=== PATIENT | female | born 1995 | race Caucasian/White ===

== ENCOUNTER 2020-10-02 15:02 | Outpatient (CLI) | payer BC, OTHER ==
[2020-10-02 15:50] VITALS: BP 137/82; RESP 18; TEMP 98.2
[2020-10-02 16:38] VITALS: PULSE 95
--- NOTE | 2020-10-05 14:14 | P.MSEPDOC ---
Presenting Problems - Arrival Data Date of Arrival on Unit: 10/02/20 Time of Arrival on Unit: 15:02 Mode of Transport: Ambulatory - Complaint OB-Reason for Admission/Chief Complaint: Other Comment: pt sent to ob triage for continued efm/toco tracing, pt states she was having. contractions at the office during a scheduled nst and reported that the "baby's heart. rate was doing different things", pt also reported her heart rate and blood pressure. were elevated while on the monitor, denies lof/vb, reports + fm, denies complications. with , abd soft and non tender Medical History - Information : 2 Para: 1 Term: 1 : 0 Abortions: Spontaneous or Elective: 0 Number of Living Children: 1 - Gestational Age Gestational Age by SIDDHARTH (wks/days): 37 Weeks and 0 Days Review of Systems - Review of Systems Constitutional: No problems Breast: No problems ENT: No problems Cardiovascular: No problems Respiratory: No problems Gastrointestinal: No problems Genitourinary: No problems Musculoskeletal: No problems Neurological: No problems Skin: No problems Vital Signs - Temperature Temperature: 98.2 F Temperature Source: Oral - Pulse Right Brachial Pulse Rate: 95 Pulse Assessment Method: Automatic Cuff - Respirations Respiratory Rate: 18 Oxygen Delivery Method: Room Air O2 Sat by Pulse Oximetry: 98 - Blood Pressure Right Arm Blood Pressure: 137/82 Blood Pressure Mean: 100 Blood Pressure Source: Automatic Cuff - Comment Vital Signs Comment: rechecked bp with result of 128/83 pulse of 97 Medical Screen Scoring (Pre) - Cervical Exam Dilation: 0 cm = 0 Membranes: Intact - Uterine Contractions Frequency: > 5 minutes apart = 1 Duration: > 40 seconds = 2 Intensity: N/A - Maternal Vital Signs Maternal Temperature: N/A Maternal Blood Pressure: N/A Signs of Preeclampsia: N/A Maternal Respirations: N/A - Maternal Trauma Maternal Trauma: N/A - Assessment - Baby A Baseline FHR: 145 Heart Rate - NICHD Category: Category I (Normal) = 0 NST: Reactive Position: N/A Station: N/A - Total Score - Baby A Total Score - Baby A: 3 - Total Score - Baby B Total Score - Baby B: 3 - Total Score - Baby C Total Score - Baby C: 3 - Level of Risk - Baby A Level of Risk - Baby A: Low (0-5) - Level of Risk - Baby B Level of Risk - Baby B: Low (0-5) - Level of Risk - Baby C Level of Risk - Baby C: Low (0-5) Physician Notification (Pre) - Physician Notified Physician Notified Date: 10/02/20 Physician Notified Time: 15:30 New Order Received: Yes (check cervix, cont to observe in triage) Medical Screen Scoring (Post) - Cervical Exam Dilation: 0 cm = 0 Membranes: Intact - Uterine Contractions Frequency: > 5 minutes apart = 1 Duration: > 40 seconds = 2 Intensity: N/A - Maternal Vital Signs Maternal Temperature: N/A Maternal Blood Pressure: N/A Signs of Preeclampsia: N/A Maternal Respirations: N/A - Pain Assessment Pain Scale Used: Numeric (1 - 10) Pain Intensity: 0 Pain Management Goal: 3 - Maternal Trauma Maternal Trauma: N/A - Assessment - Baby A Heart Rate: 145 Heart Rate - NICHD Category: Category I (Normal) = 0 NST: Reactive Position: N/A - Total Score Total Score - Baby A: 3 Total Score - Baby B: 3 Total Score - Baby C: 3 - Post Treatment Level of Risk Post Treatment Level of Risk - Baby A: Low (0-5) Post Treatment Level of Risk - Baby B: N/A Post Treatment Level of Risk - Baby C: N/A Physician Notification (Post) - Physician Notified Physician Notified Date: 10/02/20 Physician Notified Time: 16:30 Physician/Practitioner Notified:: Dr Jain Spoke With: Dr Jain New Order Received: Yes (ok to dc home) - Notification Comment Comment: pt to call office and set up appt with dr jain for 10/05/20, pt states understanding Disposition - Disposition OB Disposition: Discharge to home, Written follow up instructions reviewed Discharge Date: 10/02/20 Discharge Time: 16:37 I agree with the RN Medical Screening Exam: Yes Case reviewed; plan agreed upon as documented in EMR&OBIX.: Yes Diagnosis: RELATED CONDITIONS, UNSPECIFIED, THIRD TRIMESTER
== END 2020-10-02 16:37 | disposition home or self-care (01) ==
LOC: FBPOP 15:02
PROVIDERS: ATTEND Obstetrics & Gynecology Obstetrics
DX: O26.93 Pregnancy related conditions, unspecified, third trimester (principal); Z3A.37 37 weeks gestation of pregnancy
CPT/HCPCS: 59025

== ENCOUNTER 2020-10-16 06:00 | Inpatient (IN) | payer BC, OTHER ==
[2020-10-16] MEDS ORDERED: TERBUTALINE 1 MG/ML VIAL SQ PRN (06:20)
[2020-10-16] MEDS ORDERED: AMPICILLIN 2,000 MG in SODIUM CHLORIDE 0.9% 100 ML IVPB STA (06:20)
[2020-10-16] MEDS ORDERED: METHYLERGONOVINE 0.2 MG/ML 1 ML AMP IM PRN (06:20)
[2020-10-16] MEDS ORDERED: OXYTOCIN 10 UNIT/ML 1 ML VIAL IM PRN (06:20)
[2020-10-16] MEDS ORDERED: LIDOCAINE 0.5% (PF) 5 MG/ML (50 ML SDV) SQ PRN (06:20)
[2020-10-16] MEDS ORDERED: CARBOPROST TROMETHAMINE 250 MCG/ML 1 ML AMP IM PRN (06:20)
[2020-10-16] MEDS ORDERED: LACTATED RINGERS 1,000 ML IV SCH ×2 (06:30→21:26)
[2020-10-16] MEDS ORDERED: OXYTOCIN 30 UNITS/500 ML NS 30 UNIT in SALINE 1 500ML.BAG IV SCH ×2 (06:30→21:26)
[2020-10-16] MEDS: LACTATED RINGERS 1,000 ML IV SCH ×3 (06:33→22:09)
[2020-10-16 06:38] LABS: Basophils % (A) 0 %; Eosinophils # (A) 0.2 k/uL (0-0.7); Eosinophils % (A) 3 %; HCT 40.3 % (34.0-46.0); HGB 13.8 gm/dL (11.4-16.0); Lymphocytes # (A) 2.9 k/uL (1.0-4.8); Lymphocytes % (A) 33 %; MCH 29.8 pg (25.0-35.0); MCHC 34.4 g/dL (31.0-37.0); MCV 86.7 fL (80.0-100.0); Mean Platelet Volume 7.4; Monocytes # (A) 0.5 k/uL (0-1.0); Monocytes % (A) 6 %; Neutrophils # (A) 5.1 k/uL (1.3-7.7); Neutrophils % (A) 57 %; Platelet Count 197 k/uL (150-450); RBC 4.65 m/uL (3.80-5.40); WBC 8.8 k/uL (3.8-10.6)
[2020-10-16] MEDS: AMPICILLIN 1,000 MG in SODIUM CHLORIDE 0.9% 50 ML IVPB SCH ×4 (10:40→22:55)
[2020-10-16] MEDS ORDERED: CITRIC ACID-SODIUM CITRATE 15 ML CUP PO ONE (18:40)
--- NOTE | 2020-10-16 18:44 | P.HPOB ---
History of Present Illness H&P Date: 10/16/20 Chief Complaint: IUP at 390/7 weeks This is a yo at 39-0/7 weeks that presents to labor and delivery for induction of labor. Patient has a history of a 41 week delivery with a vacuum assist vaginal delivery. Patient requested elective induction of labor secondary to discomforts of . Patient has been receiving routine care which has been essentially uncomplicated. Patient presents today and notes good movement occasional contractions denies loss of fluid or vaginal bleeding. On bloodwork this patient has a blood type of O+, rubella status immune, B surface antigen negative, HIV negative, group beta strep cultures positive. Review of Systems Constitutional: Denies chills, Denies fatigue, Denies fever Ears, nose, mouth and throat: Denies headache Cardiovascular: Reports leg edema Respiratory: Denies dyspnea Gastrointestinal: Denies constipation, Denies diarrhea, Denies nausea, Denies vomiting Genitourinary: Reports Past Medical History Past Medical History: No Reported History History of Any Multi-Drug Resistant Organisms: None Reported Additional Past Surgical History / Comment(s): Hand surgery Past Anesthesia/Blood Transfusion Reactions: No Reported Reaction Past Psychological History: Anxiety Smoking Status: Never smoker Past Drug Use History: None Reported - Past Family History Mother Family Medical History: No Reported History Medications and Allergies Home Medications Medication Instructions Recorded Confirmed Type Doxylamine Succinate [Unisom] 25 mg PO HS 10/02/20 10/16/20 History Pnv No.95/Ferrous Fum/Folic AC 1 tab PO DAILY 10/02/20 10/16/20 History [ Multivitamin Tablet] Allergies Allergy/AdvReac Type Severity Reaction Status Date / Time No Known Allergies Allergy Verified 10/16/20 06:18 Exam Osteopathic Statement: *. No significant issues noted on an osteopathic structural exam other than those noted in the History and Physical/Consult. Vital Signs Temp Pulse Resp BP Pulse Ox 10/16/20 06:22 97.4 F L 106 H 16 128/81 100 Intake and Output 10/15/20 10/16/20 10/16/20 22:59 06:59 14:59 Other: Weight 87.997 kg Targeted physical exam is performed in this date and advertisement distributor a well-nourished well-developed female in no acute distress, breathing is noted to be nonlabored, heart has a regular rate and rhythm, abdomen is gravid and appropriate for gestational age on cervical exam she is 1-2/50/-2 station amniotomy is performed and clear fluid was obtained. Heart tones returned be category 1 and she is sony irregularly. Results Result Diagrams: 10/16/20 06:29 Assessment and Plan (1) 39 weeks gestation of Current Visit: Yes Status: Acute Code(s): Z3A.39 - 39 WEEKS GESTATION OF SNOMED Code(s): 04505540 (2) H/O delivery by vacuum extraction, currently Current Visit: Yes Status: Acute Code(s): O09.299 - SUPRVSN OF PREG W POOR REPRODCTV OR OBSTET HISTORY, UNSP TRI SNOMED Code(s): 569212494 Plan: Patient is admitted to labor and delivery for scheduled induction of labor. Patient does have a history of a vacuum assist vaginal delivery therefore requested delivery at 39 weeks. Patient is admitted to labor and delivery and Pitocin induction of labor is begun per hospital protocol. Options for analgesia are discussed including Stadol and epidural. Patient will decide when she becomes uncomfortable. Anticipate spontaneous vaginal delivery later today.
[2020-10-16] MEDS ORDERED: DEXAMETHASONE SOD PHOSPHATE 10 MG/ML 1 ML VIAL ONE (19:10)
[2020-10-16] MEDS ORDERED: MORPHINE SULFATE (PF) 0.3 MG/0.3 ML SYR ONE (19:10)
[2020-10-16] MEDS ORDERED: PHENYLEPHRINE-0.9% NACL SYG 1,000 MCG/10 ML SYRINGE ONE (19:10)
[2020-10-16] MEDS ORDERED: ePHEDrine SULFATE/0.9% NACL/PF 50 MG/5 ML SYRINGE IV ONE (19:10)
[2020-10-16] MEDS ORDERED: ONDANSETRON 4 MG/2 ML VIAL ONE (19:10)
[2020-10-16] MEDS ORDERED: OXYTOCIN 10 UNIT/ML 1 ML VIAL ONE (19:10)
[2020-10-16] MEDS ORDERED: MORPHINE SULFATE 2 MG/ML SYRINGE IVP PRN (19:40)
[2020-10-16] MEDS ORDERED: NALOXONE 0.4 MG/ML 1 ML VIAL IV PRN ×2 (19:40→21:26)
[2020-10-16] MEDS ORDERED: ONDANSETRON 4 MG/2 ML VIAL IVP PRN ×2 (19:40→21:26)
[2020-10-16] MEDS ORDERED: diphenhydrAMINE 50 MG/ML 1 ML VIAL IVP PRN ×3 (19:40→21:26)
--- NOTE | 2020-10-16 20:04 | P.OP ---
Date of Procedure: 10/16/20 Preoperative Diagnosis: IUP at 39 0, arrest of labor Postoperative Diagnosis: Same Procedure(s) Performed: Primary low transverse section Anesthesia: spinal Surgeon: Rosa M Jain Postmaster Relief #1: Fang Wood Estimated Blood Loss (ml): 465 IV fluids (ml): 700 Urine output (ml): 200 Pathology: none sent Condition: stable Disposition: observation Indications for Procedure: 25-year-old at 39-0/7 weeks that presented to labor and delivery for elective induction of labor. Patient was admitted and noted to be 1 cm. Approximately 12-13 hours later she was noted to be 470 m. Patient was given the option of proceeding versus proceeding with a primary secondary to arrest of first stage of labor. Patient decided to proceed with primary C- section. Operative Findings: Normal uterus tubes and ovaries were appreciated. Viable male infant delivered at 1931, weight of 8 lbs. 2 oz. with Apgars of 9 and 9 at one and 5 minutes respectively. Description of Procedure: The patient was prepped and draped in the usual fashion after spinal anesthesia was administered by the anesthesia department. A Pfannenstiel incision was made and extended of the abdominal cavity without difficulty. The bladder peritoneum was elevated and incised and reflected distally. A 2 cm incision was made in the transverse plane of the lower uterine segment to enter the uterus at which time clear fluid was noted. The incision was extended in both directions bluntly. The head was encountered within the field and delivered up and through the incision where the nose and mouth were thoroughly suctioned. Remainder of the was delivered onto the surgical field where the cord was doubly clamped, cut, and the was passed for resuscitative measures with weight and Apgars as noted above. A segment of cord was then doubly clamped, cut, and set aside should cord gases become necessary. The placenta was delivered manually, intact, and was grossly normal with a grossly normal three- vessel cord. The uterus was exteriorized and the interior cavity of the uterus swept of any remaining placental and membranous fragments with a laparotomy sponge. The margins of the incision were grasped with Allis clamps and the incision closed in 2 layers. First layer was a running locking layer of 0 Vicryl from margin to margin followed by a second layer of imbricating 0 Vicryl from margin to margin. Any small points of bleeding were then made hemostatic with the Bovie. Once hemostasis was achieved, the posterior cul-de-sac was suctioned with a guard and the uterine and ovarian findings are as noted above. The uterus was replaced within the abdominal cavity and the gutters swept of any remaining blood fluid or clot. The incision was again reexamined and hemostasis was noted to be excellent. Any small point of bleeding were made hemostatic with the Bovie. Once hemostasis was achieved the parietal peritoneum was loo sely reapproximated. The layer of muscles were examined and made hemostatic with the Bovie. Attention was then turned to the fascia which was closed with 2 running stitches of 0 Vicryl proceeding from the lateral margins to the midpoint. The subcutaneous tissues were irrigated, made hemostatic with the Bovie, and reapproximated with a running stitch of 30 Vicryl. The skin was reapproximated with regular surgical xenia. Estimated blood loss for the case was approximately 465 mL. All sponge instrument and needle counts are correct. There were no complications. The patient tolerated the procedure well and proceeded to the recovery room in stable condition. Both mother and infant are resting comfortably in recovery.
[2020-10-16] MEDS ORDERED: IBUPROFEN IV 800 MG in SODIUM CHLORIDE 0.9% 250 ML IV PRN (21:26)
[2020-10-16] MEDS ORDERED: METOCLOPRAMIDE 5 MG/ML 2 ML VIAL IVP PRN (21:26)
[2020-10-16] MEDS ORDERED: diphenhydrAMINE 25 MG CAP PO PRN (21:26)
[2020-10-16] MEDS ORDERED: ZOLPIDEM 5 MG TAB PO PRN (21:26)
[2020-10-16] MEDS ORDERED: diphenhydrAMINE 50 MG CAP PO PRN (21:26)
[2020-10-16] MEDS ORDERED: SIMETHICONE 80 MG CHEWABLE PO PRN (21:26)
[2020-10-16] MEDS: SENNOSIDES-DOCUSATE SODIUM 1 EACH TAB PO SCH (22:54)
[2020-10-16] MEDS: ACETAMINOPHEN TAB 500 MG TAB PO SCH (22:54)
[2020-10-17] MEDS ORDERED: ACETAMINOPHEN IV (For NPO) 1,000 MG in EMPTY BAG 1 BAG IVPB PRN
[2020-10-17] MEDS: IBUPROFEN 600 MG TAB PO SCH ×3 (03:04→15:15)
[2020-10-17] MEDS: ACETAMINOPHEN TAB 500 MG TAB PO SCH ×3 (05:40→18:09)
[2020-10-17] MEDS: LACTATED RINGERS 1,000 ML IV SCH ×3 (06:36→23:13)
[2020-10-17 07:06] LABS: Basophils % (A) 0 %; Eosinophils % (A) 0 %; HCT 36.7 % (34.0-46.0); HGB 12.7 gm/dL (11.4-16.0); Lymphocytes # (A) 2.3 k/uL (1.0-4.8); Lymphocytes % (A) 18 %; MCH 30.5 pg (25.0-35.0); MCHC 34.5 g/dL (31.0-37.0); MCV 88.3 fL (80.0-100.0); Monocytes # (A) 0.6 k/uL (0-1.0); Monocytes % (A) 5 %; Neutrophils # (A) 9.7 k/uL (1.3-7.7); Neutrophils % (A) 76 %; Platelet Count 184 k/uL (150-450); RBC 4.16 m/uL (3.80-5.40); WBC 12.8 k/uL (3.8-10.6)
[2020-10-17] MEDS: SENNOSIDES-DOCUSATE SODIUM 1 EACH TAB PO SCH ×2 (07:32→20:10)
--- NOTE | 2020-10-17 08:32 | P.PNOBGPC ---
Subjective - Subjective Principal diagnosis: POD 1 LTCS arrest of dilation Interval history: Patient is doing well this morning. She is ambulating and voiding without difficulty. Pain is well-controlled. She is tolerating a regular diet without nausea or vomiting. Patient reports: Reports appetite normal, Reports voiding normally, Reports pain well controlled, Reports ambulating normally [place]: doing well Objective - Vital Signs Latest vital signs: Vital Signs Temp Pulse Resp BP Pulse Ox 10/17/20 07:46 98.1 F 58 L 17 114/73 98 10/17/20 05:41 18 10/17/20 03:50 97.2 F L 64 16 97/60 98 10/17/20 02:00 16 10/17/20 00:15 98.1 F 59 L 16 106/63 10/16/20 22:40 18 10/16/20 22:04 97.7 F 67 16 118/58 98 10/16/20 21:34 64 18 117/59 99 10/16/20 21:04 80 16 116/57 96 10/16/20 20:49 80 14 115/56 95 10/16/20 20:40 18 96 10/16/20 20:34 88 18 116/56 95 10/16/20 20:19 103 H 16 127/63 96 10/16/20 20:04 96.8 F L 107 H 16 120/57 95 10/16/20 19:40 16 95 Intake and Output 10/16/20 10/17/20 10/17/20 22:59 06:59 14:59 Intake Total 13.433 Output Total 465 2600 780 Balance -451.567 -2600 -780 Intake: Intake, IV Titration 13.433 Amount Oxytocin 30 Units/500 ml 13.433 Ns 30 unit In Saline 1 500ml.bag @ Per Protocol IV .Q0M [facility], 1928–1983 Rx#:[id number] Output: Urine 2600 780 Uretheral ([place]) 1200 Estimated Blood Loss 465 Other: # Voids 1 1 - Exam Extremities: Present: normal, edema Abdomen: Present: normal appearance, soft Incision: Present: normal, dry, intact Uterus: Present: normal, firm - Labs Labs: Abnormal Lab Results - Last 24 Hours (Table) 10/17/20 Range/Units 06:51 WBC 12.8 H (3.8-10.6) k/uL Neutrophils # 9.7 H (1.3-7.7) k/uL Assessment and Plan (1) 39 weeks gestation of Current Visit: Yes Status: Acute Code(s): Z3A.39 - 39 WEEKS GESTATION OF SNOMED Code(s): 71236575 (2) H/O delivery by vacuum extraction, currently Current Visit: Yes Status: Acute Code(s): O09.299 - SUPRVSN OF PREG W POOR REPRODCTV OR OBSTET HISTORY, UNSP TRI SNOMED Code(s): 259478477 (3) S/P section Current Visit: Yes Status: Acute Code(s): Z98.891 - HISTORY OF UTERINE SCAR FROM PREVIOUS SURGERY SNOMED Code(s): 706854182 Plan: 25-year-old G2 now P2 status post primary for arrest of descent and dilation. Patient is doing well this morning. We'll encourage increased ambulation and advance diet. Anticipate discharge home tomorrow.
[2020-10-17] MEDS ORDERED: PRENATAL VIT-IRON-FOLIC ACID 1 EACH CAP PO SCH (09:00)
--- NOTE | 2020-10-17 11:07 | P.PN ---
Progress Note - Text Progress Note Date: 10/17/20 (868) Anesthesia Postop day 1 Subjective: Status Post section with Duramorph. Patient seen and examined. Doing well without complaint. VAS 7 out of 10tolerable. No nausea vomiting or itching. Afebrile. Gross lower extremity strength intact. Without apparent anesthetic complications. Objective: Vital signs reviewed Heart: Regular Rate Lungs: Good chest excursion Abdomen: Appears nondistended Assessment: Status post with Duramorph postop day 1 Plan: Continue current care with your medical management.
[2020-10-18] MEDS: IBUPROFEN 600 MG TAB PO SCH ×2 (00:34→09:16)
--- NOTE | 2020-10-18 08:29 | P.DS ---
Providers Date of admission: 10/16/20 06:09 Expected date of discharge: 10/18/20 Attending physician: Rosa M Jain Primary care physician: Stated None - Discharge Diagnosis(es) (1) 39 weeks gestation of Current Visit: Yes Status: Acute (2) H/O delivery by vacuum extraction, currently Current Visit: Yes Status: Acute (3) S/P section Current Visit: Yes Status: Acute Hospital Course: This is a 25-year-old 2 now para 2 status post primary . Patient was admitted to labor and delivery on 518 for scheduled induction of labor. Patient history of a vacuum-assisted vaginal delivery and desired induction of labor. Patient was admitted to labor and delivery and Pitocin induction of labor was begun. Patient made little to no progress throughout the day. Patient was admitted at 1 cm and approximately 1900 she had progressed to 4 discussion was had with the patient regarding arrest of dilation and possibility of waiting versus proceeding with primary . Patient desired primary . Patient underwent primary without difficulty for arrest of descent and dilation, for further details on the C- section please see the operative report. Patient delivered a liveborn male at 1931, weight of 8 lbs. 2 oz. and Apgars of 9 and 9 at one and 5 minutes respect weight. Patient's postoperative course has been uneventful. On this postoperative day #1 she is ambulating and voiding without difficulty. She is tolerating a regular diet without nausea or vomiting. She states her pain is well-controlled and she wishes discharge home. Patient Condition at Discharge: Good Plan - Discharge Summary New Discharge Prescriptions: No Action Pnv No.95/Ferrous Fum/Folic AC [ Multivitamin Tablet] 1 tab PO DAILY Doxylamine Succinate [Unisom] 25 mg PO HS Discharge Medication List Doxylamine Succinate [Unisom] 25 mg PO HS 10/02/20 [History] Pnv No.95/Ferrous Fum/Folic AC [ Multivitamin Tablet] 1 tab PO DAILY 10/02/20 [History] Follow up Appointment(s)/Referral(s): Rosa M Jain DO [Doctor of Osteopathic Medicine] - 2 Weeks Patient Instructions/Handouts: (DC), (GEN) Discharge Disposition: HOME SELF-CARE
[2020-10-18] MEDS: SENNOSIDES-DOCUSATE SODIUM 1 EACH TAB PO SCH (09:16)
[2020-10-18 09:58] VITALS: BP 131/84; PULSE 74; RESP 18; TEMP 97.4
== END 2020-10-18 11:52 | disposition home or self-care (01) | DRG 788 ==
LOC: 4FBP 06:09
PROVIDERS: ADMIT Obstetrics & Gynecology Obstetrics; ATTEND Obstetrics & Gynecology Obstetrics
PROC: 10D00Z1 Extraction of Products of Conception, Low, Open Approach (ICD-10-PCS; principal; 2020-10-16 06:00)
DX: O62.0 Primary inadequate contractions (principal); O62.1 Secondary uterine inertia; Z37.0 Single live birth; Z3A.39 39 weeks gestation of pregnancy
CPT/HCPCS: 85025; 86850; 86900; 86901

== ENCOUNTER → 2023-05-13 | Outpatient (CLI) | payer OTHER ==
--- NOTE | 2023-05-13 15:21 | USB ---
Reason for Exam: Clinical finding. Technique: Method: Whole Breast Handheld. Findings: The whole breast of the right breast, the axilla of the right breast and the retroareolar of the right breast were scanned. No solid or cystic masses are identified. Overall Assessment: Negative, BI-RAD 1 Management: Screening Mammogram of both breasts at age 40. A clinical breast exam by your physician is recommended on an annual basis and results should be correlated with mammographic findings. This exam should not preclude additional follow-up of suspicious palpable abnormalities. Results were given to the patient verbally at the time of exam. Electronically signed and approved by: Francois Payton D.O. Radiologis
== END | disposition home or self-care (01) ==
LOC: RADUSWWP 14:46
PROVIDERS: ATTEND Family Medicine
DX: N64.52 Nipple discharge (principal); N64.4 Mastodynia

== ENCOUNTER → 2023-05-18 | Outpatient (CLI) | payer OTHER ==
--- NOTE | 2023-05-19 20:34 | MR ---
EXAMINATION TYPE: MR pituitary wo/w con DATE OF EXAM: 05/18/2023 10:22 PM CLINICAL INDICATION:Female, 27 years old with history of N64.52; PHH, Breast discharge, multiple eye issues. COMPARISON: None. TECHNIQUE: Multi planar, multi sequence imaging was performed through the brain. Specialized thin s equences were obtained through the pituitary gland/sella turcica. Pre-and post gadolinium sequences were obtained. IV Contrast: 7.5 cc Gadobutrol FINDINGS: There is slight prominent tissue with convex superior margin identified involving the right aspect of the sella which is slightly T2 hypointense and demonstrates minimal hypoenhancement on postcontrast sequences when compared to presume normal pituitary tissue. The abnormality does abut the right howie nous sinus but does not extend beyond the inter-carotid line. The pituitary infundibulum remains pred ominantly in the midline. The suprasellar cistern is preserved, no significant mass effect on the opt ic chiasm is appreciated. The rick-white junctions, ventricular system, and basal cisterns appear unremarkable. The intracrania l arterial flow voids are intact. IMPRESSION: Nonspecific prominent tissue along the right aspect of the sella which demonstrates subtle hypoenhanc ement compared to normal pituitary. Favored diagnosis is underlying microadenoma, correlate with labo ratory analysis and consideration for 6 month follow-up MR examination.
== END | disposition home or self-care (01) ==
LOC: RADMRIMAIN 09:40
PROVIDERS: ATTEND Family Medicine
DX: E23.6 Other disorders of pituitary gland (principal); N64.52 Nipple discharge; G24.5 Blepharospasm; H53.9 Unspecified visual disturbance; R51.9 Headache, unspecified
CPT/HCPCS: 70553; A9585

== ENCOUNTER → 2024-11-04 | Outpatient (CLI) | payer BC, OTHER ==
--- NOTE | 2024-11-09 22:06 | CT ---
EXAMINATION TYPE: CT abdomen pelvis w con DATE OF EXAM: 11/04/2024 4:07 PM COMPARISON: None. CLINICAL INDICATION: Female, 29 years old with history of K92.1 MELENA R10.9 ABD PAIN R11.0 NAUSEA, R ecent abdominal pain/stomach issues TECHNIQUE: Axial images were obtained from above the diaphragm to the pubic rami in the axial plane a t 5 mm thick sections. Reconstructed images are reviewed on the computer in the coronal plane. CONTRAST: 100ml mL of Isovue 300. Study performed with Oral Contrast DLP: 541.7 mGycm, Automated exposure control for dose reduction was used. FINDINGS: Limited CT sections are obtained the lung bases. The lung bases are clear. CT ABDOMEN: Liver: Normal Spleen: Normal Pancreas: Normal Adrenal glands: The adrenal glands are normal. Gallbladder: Normal Kidneys: No masses are evident. No hydronephrosis is present. No cysts are present. Delayed images were obtained through the kidneys, which remain unremarkable. Aorta: Normal Inferior vena cava: Normal. CT PELVIS: Loops of bowel within the abdomen and pelvis are normal. Fecal debris is within the colon There ar e loops of bowel which are incompletely distended or lack oral contrast limiting their evaluation. Appendix: Normal as visualized. Urinary bladder: Normal. Genitourinary structures: Uterus appears normal. Adnexa are unremarkable. Osseous structures: No suspicious lytic or sclerotic lesions. IMPRESSION: 1. No suspicious acute abnormality 2. Mild fecal debris throughout the colon. [facility], , 11/09/2024 10:03 PM
== END | disposition home or self-care (01) ==
LOC: RADCTMAIN 14:19
PROVIDERS: ATTEND Family Medicine
DX: K92.1 Melena (principal); R10.9 Unspecified abdominal pain; R11.0 Nausea
CPT/HCPCS: 74177; Q9967